=== PATIENT | female | born 1975 | race Two or more races ===

== ENCOUNTER 2024-04-07 10:25 | Day surgery (SDC) | payer MEDICAID ==
[~2024-04-07] VITALS: Ht 160 cm; Wt 82.6 kg
[2024-04-07] VITALS (7 sets, daily range): BP systolic 104–128; BP diastolic 51–83; PULSE 51–60; RESP 12–20; O2SAT 98–100
[~2024-04-07 10:25] MED LIST: CICL8SOL21 TOP; LORA-622 PO; MULT-224 PO; NITR0.4S29 SL
[2024-04-07] MEDS ORDERED: IODIXANOL 320MG/ML 100ML BTL IV ONE ×2 (12:42→14:14)
[2024-04-07] MEDS ORDERED: HEPARIN IN NS 1000Units/500mL 1,500 ML ONE (14:13)
[2024-04-07] MEDS ORDERED: ANGIOMAX 250 MG VIAL IV ONE (14:17)
[2024-04-07] MEDS ORDERED: fentaNYL CITRATE 100 MCG/2 ML VL ONE (14:17)
[2024-04-07] MEDS ORDERED: LIDOCAINE 2%HCL (LOCAL ANESTH.) INJ 20ML MDV ONE (14:17)
[2024-04-07] MEDS ORDERED: VERAPAMIL 2.5MG/ML INJ 2ML VIAL IV ONE (14:17)
[2024-04-07] MEDS ORDERED: MIDAZOLAM HCL 2MG/2ML 2ml VIAL (1mg/ml) ONE (14:17)
[2024-04-07] MEDS ORDERED: SODIUM CHL 0.9% 0 ML ONE (14:17)
[2024-04-07] MEDS ORDERED: HEPARIN SODIUM (PORCINE) 5000 UNITS/ML 1ML VIAL ONE (14:17)
--- NOTE | 2024-04-07 15:12 | DVHOP ---
DATE OF SURGERY: 04/07/2024 PROCEDURE PERFORMED: Left heart catheterization, bilateral cine coronary angiography, left ventriculography. INDICATION: Chest pain. DESCRIPTION OF PROCEDURE: Prior local anesthesia with 2% lidocaine to the right wrist and full informed consent obtained. The patient was prepped and draped in the usual fashion, followed by placement of a 6-Turkmen sheath into the right radial artery, through which a Jamel catheter was used for ventriculography and cannulation of both right and left coronary ostia. No complications. HEMODYNAMICS: Aortic blood pressure was 110/70, end-diastolic pressure was 16. No gradient across the aortic valve on pullback. CORONARY ANATOMY: RCA is large and normal. PDA and posterolateral branches are normal. Left main is large and normal. The left anterior descending is normal. Two diagonals free of significant disease. The circumflex is large with 2 marginals free of significant disease. Normal circumflex and LAD systems. Ventriculography in the LAU projection shows an EF of approximately 60%. IMPRESSION: Normal left ventricular end-diastolic pressure at rest, normal ejection fraction, no coronary artery disease. RECOMMENDATIONS: Medical therapy is warranted. Continue risk factor modification. Brenton Almaraz MD GAP/VIS TID: [id number] RECEIPT: [id number]
== END 2024-04-07 18:35 | disposition home or self-care (01) ==
LOC: CATH 10:25
PROVIDERS: ATTEND Internal Medicine
DX: R94.39 Abnormal result of other cardiovascular function study (principal); R07.89 Other chest pain
CPT/HCPCS: 36415; 84702; 93458; C1887; C1894; J1644; J2250; J3010; Q9967; 99152

== ENCOUNTER 2024-04-30 11:09 | Emergency (ER) | payer MEDICAID ==
[~2024-04-30] VITALS: Ht 160 cm; Wt 80.3 kg
--- NOTE | 2024-04-30 12:45 | ED.PDOC ---
Eye-HPI HPI Comments A 48Y F PRESENTS TO ED FOR CHIEF COMPLAINT SORE THROAT X1WEEK WITH FEVER, COUGH, AND ABD PAIN AFTER COUGHING. PT DENIES CHEST PAIN AND SOB. NO OTHER SYMPTOMS REPORTED. PT HAS NOT TAKEN ANY MEDICATIONS FOR SYMPTOM RELIEF. PATIENT IS ALERT, ORIENTED X 4, AND HAS STEADY GAIT. Chief Complaint: Sore Throat Time Seen by MD: 12:35 Primary Care Provider: ? Reviewed Notes: Medications, Allergies Allergies: Coded Allergies: Cetirizine (Verified Allergy, Unknown, "BUMPS ON LEGS", 04/02/24) Home Meds Active Scripts Promethazine-Dm (Promethazine Dm 6.25-15 mg/5Ml) 1 Renate Renate, 5 ML PO TID, #180 ML Prov:RONA MONTANO 04/30/24 Azithromycin (Azithromycin) 500 Mg Tab, 1 TAB PO DAILY, #5 TAB Prov:RONA MONTANO 04/30/24 Reported Medications Multiple Vitamins W/ Minerals (Multi For Her) For Her Tab, 1 HER PO, TAB 04/02/24 Ciclopirox (Ciclopirox Nail Lacquer) 8 % Renate, 1 APPLIC TOP HSPRN PRN for FUNGUS INFECTION, #6.6 ML 6 Refills 04/02/24 Loratadine (Claritin) 10 Mg Tab, 1 TAB PO DAILY for ALLERGIES, #30 TAB 5 Refills 04/02/24 Nitroglycerin (NTROSTAT SUBLINGUAL) 0.4 Mg Sl, 0.4 MG SL PRN for CHEST PAIN, TAB *MAY REPEAT EVERY 5 MINUTES X 3 TOTAL IF NO RELIEF, INITIATE ANALGESIC THERAPY. NOTIFY PHYSICIAN *Do not crush. 04/02/24 Information Source: Patient Mode of Arrival: Ambulatory Timing: Weeks Duration: Since onset Quality: Pain, Red Conjunctiva: Normal Cornea: Normal Pupils: Normal EOM: Normal Slit lamp exam: Normal Anterior chamber: Normal Mouth Location: Pharynx Mouth: Normal Nose: Normal Sinuses: Normal Oropharynx: Tonsillar hypertrophy, Red Onset: Spontaneous Throat Exposed to: None Eye Context Recent: URI Symptoms History of: None Last Tetanus: UTD Modifying factors: Nothing Associated signs and symptoms: Nasal Symptoms, Sore Throat, Other Past Medical History PAST MEDICAL HISTORY: Denies Surgical History: Denies all surgeries EDGER TAILER History: No Pertinent EDGER TAILER History Family History Family History: Unknown Social History Smoker: Non-Smoker Alcohol: Denies ETOH Use Drugs: Denies Drug Use Lives In: Home Constitutional: reports: fever; denies: chills, diaphoresis, fatigue, malaise, sweats, weakness, others EENTM: reports: nose congestion, throat pain, throat swelling; denies: blurred vision, double vision, ear bleeding, ear discharge, ear drainage, ear pain, ear ringing, eye pain, eye redness, hearing loss, mouth pain, mouth swelling, nasal discharge, nose bleeding, nose pain, photophobia, tearing, voice changes, others Respiratory: reports: cough; denies: hemoptysis, orthopnea, SOB at rest, shortness of breath, SOB with excertion, stridor, wheezing, others Cardiovascular: denies: chest pain, dizzy spells, diaphoresis, Dyspnea on exertion, edema, irregular heart beat, left arm pain, lightheadedness, palpitations, PND, syncope, others Gastrointestinal: reports: abdominal pain; denies: abdomen distended, blood streaked bowels, constipated, diarrhea, dysphagia, difficulty swallowing, hematemesis, melena, nausea, poor appetite, poor fluid intake, rectal bleeding, rectal pain, vomiting, others Genitourinary: denies: abnormal vagina bleeding, burning, dyspareunia, dysuria, flank pain, frequency, hematuria, incontinence, pain, , vagina discharge, urgency, others Neurological: denies: dizziness, fainting, headache, left sided numbness, left sided weakness, numbness, paresthesia, pre-existing deficit, right sided numbness, right sided weakness, seizure, speech problems, tingling, tremors, weakness, others Musculoskeletal: denies: back pain, gout, joint pain, joint swelling, muscle pain, muscle stiffness, neck pain, others Integumetry: denies: bruises, change in color, change in hair/nails, dryness, laceration, lesions, lumps, rash, wounds, others Allergic/Immunocompromised: denies: Difficulty Healing, Frequent Infections, Hives, Itching, others Hematologic/Lymphatic: denies: anemia, blood clots, easy bleeding, easy br uising, swollen glands, others Endocrine: denies: excessive hunger, excessive sweating, excessive thirst, excessive urination, flushing, intolerance to cold, intolerance to heat, unexplained weight gain, unexplained weight loss, others Psychiatric: denies: anxiety, bipolar disorder, depression, hopeless, panic disorder, schizophrenia, sleepless, suicidal, others All Other Systems: Reviewed and Negative Physical Exam General Appearance: No Apparent Distress, Normal HEENT: PERRL/EOMI, Pharyngeal Erythema (TONSILLAR SWELLING, NO EXUDATES. ), TMs Normal Neck: Full Range of Motion, Non-Tender, Normal, Normal Inspection Respiratory: Chest Non-Tender, Inspiration, No Accessory Muscle Use, No Respiratory Distress, Rhonchi Cardiovascular: No Edema, No JVD, No Murmur, No Gallop, Normal Peripheral Pulses, Regular Rate/Rhythm Breast Exam: Deferred Gastrointestinal: No Organomegaly, Non Tender, No Pulsatile Mass, Normal Bowel Sounds, Soft Genitalia: Deferred Pelvic: Deferred Rectal: Deferred Extremities: No calf tenderness, Normal capillary refill, Normal inspection, Normal range of motion, Non-tender, No pedal edema Musculoskeletal : Apperance: Normal Neurologic: Alert, insurance special agent II-XII nml as Tested, No Motor Deficits, Normal Affect, Normal Mood, No Sensory Deficits Cerebellar Function: Normal Reflexes: Normal Skin: Dry, Normal Color, Warm Peripheral Pulses: 2+ carotid (R), 2+ carotid (L) Lymphatic: No Adenopathy Was a procedure done? Was a procedure done?: No EENT DIFF Eye: N/A Ear: Pharyngitis, N/A Nose: N/A Mouth: N/A Sore Throat: Pharyngitis, Viral Pharyngitis, URI Other Differential Diagnosis BRONCHITIS X-Ray, Labs, Meds, VS Vital Signs Date Time Temp Pulse Resp B/P (MAP) Pulse Ox O2 Delivery O2 Flow Rate FiO2 04/30/24 11:30 98.1 97 16 146/83 (104) 99 X-Ray, Labs, Meds, VS Comment COURSE: EXTERNAL MEDICAL RECORDS REVIEWED: [NONE] INDEPENDENT HISTORIANS: [NONE] SOCIAL DETERMINANTS OF HEALTH: [NONE] LABS ORDERED: NONE REVIEWED AND INTERPRETED RESULTS: NONE IMAGING ORDERED: CXR NORMAL CHEST X RAY RESULT: INTERPRETED BY ME. NO ACUTE FINDINGS. NO PNEUMONIA. NO CONSOLIDATIONS. NO INFILTRATES. PENDING RADIOLOGIST REPORT. TREATMENTS ORDERED: NONE PROCEDURES PERFORMED: NONE CRITICAL CARE TIME: NONE I HAVE DISCUSSED THE PATIENT WITH THE ATTENDING PHYSICIAN DR. MARQUES PALAFOX AND SHE AGREES WITH THE PATIENT'S PLAN OF CARE AND DISPOSITION. GIVEN THE HISTORY AND PRESENT ILLNESS OF THE PATIENT, AFTER REVIEWING LABS, IMAGING, AND COURSE OF TREATMENT ADMINISTERED DURING THEIR ED VISIT, THERE IS LOW SUSPICION FOR RED FLAG FINDINGS. BASED ON HISTORY OF PRESENT ILLNESS, AND PHYSICAL EXAM, PATIENT WILL BE DISCHARGED HOME. DISCUSSED PLAN FOR DISCHARGE HOME WITH RX. MEDICATION WARNINGS GIVEN. SHARED DECISION MAKING: DISCUSSED WITH PATIENT THAT THEIR WORKUP WAS NORMAL. PATIENT INSTRUCTED TO FOLLOW UP WITH PRIMARY CARE PROVIDER IN 1-2 DAYS FOR RE- EVALUATION OF SYMPTOMS. PATIENT VERBALIZES UNDERSTANDING TO RETURN TO ED FOR NEW OR WORSENING SYMPTOMS OR IF FOLLOW UP WITH PCP CANNOT BE OBTAINED. PATIENT FEELS COMFORTABLE GOING HOME AT THIS TIME. ALL QUESTIONS ADDRESSED AT TIME OF DISCHARGE. Time of 1ST Reevaluation: 13:05 Reevaluation 1ST: Improved Patient Education/Counseling: Diagnosis, Treatment, Need For Follow Up Family Education/Counseling: Diagnosis, Treatment, Need For Follow Up, No Family Present Medical Screening: No EMC Exist At This Time Departure 1 Departure Time of Disposition: 13:09 Impression: Primary Impression: Bronchitis Additional Impression: Tonsillitis Disposition: 01 HOME / SELF CARE / HOMELESS Condition: Stable Additional Instructions: FOLLOW-UP WITH PCP IN 1 TO 2 DAYS. TAKE MEDICATIONS PRESCRIBED. RETURN TO ED FOR ANY NEW OR WORSENING SYMPTOMS. e-Prescriptions Promethazine-Dm (Promethazine Dm 6.25-15 mg/5Ml) 1 Renate Renate 5 ML PO TID, #180 ML Prov: RONA MONTANO 04/30/24 Azithromycin (Azithromycin) 500 Mg Tab 1 TAB PO DAILY, #5 TAB Prov: RONA MONTANO 04/30/24 Discharged With: Self Critical Care Note Critical Care Time?: No Stability Stability form required: No Heart Score Heart Score: Heart Score Response (Comments) Value History N/A 0 EKG N/A 0 Age N/A 0 Risk Factors N/A 0 Troponin N/A 0 Total 0 I personally scribed for RONA MONTANO ([email or web address]) on 04/30/24 at 12:45. Electro nically submitted by Debra Matute ([facility] I personally scribed for RONA MONTANO ([email or web address]) on 04/30/24 at 13:03. E lectronically submitted by Debra Matute ([facility] RONA MONTANO Apr 30, 2024 12:45
[2024-04-30] MEDS ORDERED: AZIT500T66 PO (13:08)
[2024-04-30] MEDS ORDERED: PROM1SOL4 PO (13:08)
[2024-04-30 13:09] VITALS: BP 146/83; PULSE 97; RESP 16; TEMP 98.1; O2SAT 99
--- NOTE | 2024-04-30 13:11 | DVH ---
XY CHEST TWO VIEWS ROUTINE CLINICAL HISTORY: COUGH COMPARISON: None TECHNIQUE: Frontal and lateral view of the chest was obtained FINDINGS: Lines and Tubes: None Lungs: No focal consolidation. Pleura: No effusion. No pneumothorax. Cardiomediastinal contours: Unremarkable Bones: No acute osseous abnormality. IMPRESSION: No acute cardiopulmonary disease.
== END 2024-04-30 13:11 | disposition home or self-care (01) ==
LOC: ER 11:09
DX: J40 Bronchitis, not specified as acute or chronic (principal); J03.90 Acute tonsillitis, unspecified; Z88.8 Allergy status to other drugs, medicaments and biological substances; Z79.899 Other long term (current) drug therapy
CPT/HCPCS: 71046